=== PATIENT | male | born 1995 | race Caucasian/White ===

== ENCOUNTER 2022-10-27 11:43 | Inpatient (IN) | payer OTHER ==
[~2022-10-27] VITALS: Ht 182.9 cm; Wt 106.1 kg
[2022-10-27 12:47] LABS: HEMATOCRIT 47.9 % (42.0-52.0); HEMOGLOBIN 16.4 g/dl (13.5-17.5); MEAN CORPUSCULAR HEMOGLOBIN 31.7 pg (27.0-33.0); MEAN CORPUSCULAR HGB CONC 34.2 g/dl (32.0-36.5); MEAN CORPUSCULAR VOLUME 92.6 fl (80.0-96.0); PLATELET COUNT, AUTOMATED 282 10^3/uL (150-450); RED BLOOD COUNT 5.17 10^6/uL (4.30-6.10); WHITE BLOOD COUNT 8.8 10^3/uL (4.0-10.0)
[2022-10-27 13:07] LABS: METHADONE URINE NEGATIVE (NEGATIVE); OPIATES URINE NEGATIVE (NEGATIVE); PHENCYCLIDINE URINE NEGATIVE (NEGATIVE)
[2022-10-27 13:08] LABS: AMPHETAMINES LEVEL URINE NEGATIVE (NEGATIVE); BARBITURATES URINE NEGATIVE (NEGATIVE); BENZODIAZEPINES URINE NEGATIVE (NEGATIVE); CANNABINOIDS URINE NEGATIVE (NEGATIVE)
[2022-10-27 13:09] LABS: COCAINE METABOLITE URINE POSITIVE (NEGATIVE)
[2022-10-27 13:15] LABS: RSV AMPLIFICATION NEGATIVE (NEGATIVE)
[2022-10-27 13:22] LABS: ETHYL ALCOHOL (ETHANOL) 0.015 % (0.000-0.010)
[2022-10-27 13:23] LABS: ACETAMINOPHEN LEVEL < 2.0 UG/ML (10.0-20.0)
[2022-10-27 13:24] LABS: ALBUMIN 4.1 G/DL (3.2-5.2); ALKALINE PHOSPHATASE 96 U/L (46-116); ALT/SGPT 33 U/L (7.0-40); AST/SGOT 25 U/L (<34); BILIRUBIN,DIRECT < 0.1 MG/DL (<0.4); BILIRUBIN,TOTAL 0.3 MG/DL (0.3-1.2); BLOOD UREA NITROGEN 11 MG/DL (9-23); CALCIUM LEVEL 9.2 MG/DL (8.5-10.1); CARBON DIOXIDE LEVEL 23 MMOL/L (20-31); CHLORIDE LEVEL 101 MMOL/L (98-107); CREATININE FOR GFR 0.72 MG/DL (0.70-1.30); GLOMERULAR FILTRATION RATE > 60.0 (>60); GLUCOSE, FASTING 83 MG/DL (60-100); POTASSIUM SERUM 4.1 MMOL/L (3.5-5.1); SALICYLATE LEVEL < 3.0 MG/DL (<30); SODIUM LEVEL 139 MMOL/L (136-145); TOTAL PROTEIN 7.3 G/DL (5.7-8.2)
[2022-10-27 13:26] LABS: THYROID STIMULATING HORMONE 0.579 uIU/ML (0.55-4.78)
[2022-10-27] MEDS ORDERED: NICOTINE 21MG/24HR 1 EA TRANSDERMAL TD SCH (14:35)
[2022-10-27] MEDS ORDERED: HOME MED LIST COMPLETE! XX SCH (16:05)
[2022-10-27] MEDS ORDERED: MOM 30ML SUSPENSION UDC PO PRN (18:10)
[2022-10-27] MEDS ORDERED: LORazepam 1 MG TAB PO PRN (18:10)
[2022-10-27] MEDS ORDERED: MAALOX 30 ML SUSP *UDC PO PRN (18:10)
[2022-10-27] MEDS ORDERED: LORazepam 2 MG TAB PO PRN (19:05)
[2022-10-27 21:03] VITALS: BP 132/86
[2022-10-27] MEDS: traZODone 50 MG TAB PO PRN (21:30)
[2022-10-27] MEDS: THIAMINE 100 MG TAB PO SCH (21:30)
[2022-10-28 06:25] VITALS: BP 131/77
[2022-10-28 06:34] VITALS: BP 120/78
[2022-10-28] MEDS: MULTIVITAMINS/MINERALS THERAP 1 TAB PO SCH (08:35)
[2022-10-28] MEDS: THIAMINE 100 MG TAB PO SCH ×2 (08:36→21:09)
[2022-10-28] MEDS: FOLIC ACID 1MG TAB PO SCH (08:36)
[2022-10-28] MEDS: NICOTINE 21MG/24HR 1 EA TRANSDERMAL TD SCH (08:36)
[2022-10-28] MEDS: busPIRone 5 MG TAB PO SCH ×2 (11:26→21:09)
[2022-10-28 14:30] VITALS: BP 129/62
[2022-10-28 16:22] VITALS: BP 129/63
[2022-10-28] MEDS ORDERED: SERTRALINE HCL 25 MG TABLET PO ONE (21:00)
[2022-10-28 22:00] VITALS: BP 113/78
[2022-10-28] MEDS: traZODone 50 MG TAB PO PRN (22:26)
[2022-10-29 06:37] VITALS: BP 120/64
[2022-10-29 08:00] VITALS: BP 120/64
[2022-10-29] MEDS: FOLIC ACID 1MG TAB PO SCH (08:12)
[2022-10-29] MEDS: busPIRone 5 MG TAB PO SCH ×2 (08:12→21:00)
[2022-10-29] MEDS: NICOTINE 21MG/24HR 1 EA TRANSDERMAL TD SCH (08:12)
[2022-10-29] MEDS: MULTIVITAMINS/MINERALS THERAP 1 TAB PO SCH (08:12)
[2022-10-29] MEDS: THIAMINE 100 MG TAB PO SCH ×2 (08:12→21:00)
[2022-10-29 16:41] VITALS: BP 139/89
[2022-10-29 16:42] VITALS: BP 139/89
[2022-10-29 19:33] VITALS: BP 139/89
[2022-10-29 20:55] VITALS: BP 120/64
[2022-10-29] MEDS: SERTRALINE HCL 50 MG TAB PO SCH (21:00)
[2022-10-29] MEDS: traZODone 50 MG TAB PO PRN (21:00)
[2022-10-30 06:16] VITALS: BP 129/62
[2022-10-30 06:18] VITALS: BP 129/62
[2022-10-30] MEDS: MULTIVITAMINS/MINERALS THERAP 1 TAB PO SCH (08:14)
[2022-10-30] MEDS: busPIRone 5 MG TAB PO SCH ×2 (08:15→21:21)
[2022-10-30] MEDS: FOLIC ACID 1MG TAB PO SCH (08:15)
[2022-10-30] MEDS: THIAMINE 100 MG TAB PO SCH (08:15)
[2022-10-30] MEDS: NICOTINE 21MG/24HR 1 EA TRANSDERMAL TD SCH (08:15)
[2022-10-30 14:05] VITALS: BP 140/85
[2022-10-30 16:42] VITALS: BP 140/85
[2022-10-30] MEDS: traZODone 50 MG TAB PO PRN (21:21)
[2022-10-30] MEDS: SERTRALINE HCL 50 MG TAB PO SCH (21:21)
[2022-10-31 06:20] VITALS: BP 126/57
[2022-10-31] MEDS: busPIRone 5 MG TAB PO SCH ×2 (08:40→21:26)
[2022-10-31] MEDS: NICOTINE 21MG/24HR 1 EA TRANSDERMAL TD SCH (08:40)
[2022-10-31 16:24] VITALS: BP 135/84
[2022-10-31] MEDS: SERTRALINE HCL 50 MG TAB PO SCH (21:26)
[2022-10-31] MEDS: traZODone 100 MG TAB PO PRN (23:48)
[2022-11-01 06:15] VITALS: BP 119/59
[2022-11-01] MEDS: busPIRone 5 MG TAB PO SCH ×2 (08:07→20:25)
[2022-11-01] MEDS: NICOTINE 21MG/24HR 1 EA TRANSDERMAL TD SCH (08:07)
[2022-11-01 16:44] VITALS: BP 131/68
[2022-11-01] MEDS: SERTRALINE HCL 50 MG TAB PO SCH (20:25)
[2022-11-01] MEDS: traZODone 100 MG TAB PO PRN (22:02)
[2022-11-02 06:07] VITALS: BP 126/60
[2022-11-02] MEDS: NICOTINE 21MG/24HR 1 EA TRANSDERMAL TD SCH (08:16)
[2022-11-02] MEDS: hydrOXYzine 50 MG TAB PO PRN (08:17)
[2022-11-02] MEDS: busPIRone 5 MG TAB PO SCH (08:17)
[2022-11-02] MEDS ORDERED: busPIRone 10 MG TAB PO SCH (09:00)
[2022-11-02] MEDS ORDERED: busPIRone 5 MG TAB PO ONE (10:00)
[2022-11-02] MEDS: SERTRALINE 100 MG TAB PO SCH (10:44)
[2022-11-02] MEDS: ACETAMINOPHEN TAB 650MG DOSE (2X325MG) PO PRN (15:07)
[2022-11-02 18:18] VITALS: BP 123/78
[2022-11-02] MEDS: POLYVINYL ALCOHOL OPHTH SOLN 15ML (LIQUITEARS) OU PRN (20:30)
[2022-11-02] MEDS: busPIRone 10 MG TAB PO SCH (20:30)
[2022-11-02] MEDS: traZODone 100 MG TAB PO PRN (22:35)
[2022-11-03 06:03] VITALS: BP 109/60
[2022-11-03] MEDS: POLYVINYL ALCOHOL OPHTH SOLN 15ML (LIQUITEARS) OU PRN ×2 (08:28→16:11)
[2022-11-03] MEDS: SERTRALINE 100 MG TAB PO SCH (08:28)
[2022-11-03] MEDS: busPIRone 10 MG TAB PO SCH ×2 (08:28→20:12)
[2022-11-03] MEDS: NICOTINE 21MG/24HR 1 EA TRANSDERMAL TD SCH (08:29)
[2022-11-03] MEDS: ACETAMINOPHEN TAB 650MG DOSE (2X325MG) PO PRN (12:41)
[2022-11-03] MEDS: hydrOXYzine 50 MG TAB PO PRN (16:18)
[2022-11-03 19:05] VITALS: BP 166/90
[2022-11-03] MEDS: traZODone 100 MG TAB PO PRN (21:45)
[2022-11-04 06:13] VITALS: BP 125/69
[2022-11-04] MEDS: busPIRone 10 MG TAB PO SCH ×2 (08:24→20:47)
[2022-11-04] MEDS: SERTRALINE 100 MG TAB PO SCH (08:24)
[2022-11-04] MEDS: NICOTINE 21MG/24HR 1 EA TRANSDERMAL TD SCH (08:24)
[2022-11-04] MEDS: POLYVINYL ALCOHOL OPHTH SOLN 15ML (LIQUITEARS) OU PRN ×3 (10:38→21:21)
[2022-11-04] MEDS: hydrOXYzine 50 MG TAB PO PRN ×2 (11:31→19:01)
[2022-11-04 18:36] VITALS: BP 155/86
[2022-11-04] MEDS: traZODone 100 MG TAB PO PRN (23:32)
[2022-11-04] MEDS: PRAZOSIN 1 MG CAP PO SCH (23:32)
[2022-11-05 06:35] VITALS: BP 154/70
[2022-11-05] MEDS: busPIRone 10 MG TAB PO SCH ×2 (08:03→19:49)
[2022-11-05] MEDS: SERTRALINE 100 MG TAB PO SCH (08:03)
[2022-11-05] MEDS: NICOTINE 21MG/24HR 1 EA TRANSDERMAL TD SCH (08:03)
[2022-11-05] MEDS: POLYVINYL ALCOHOL OPHTH SOLN 15ML (LIQUITEARS) OU PRN ×3 (08:03→19:49)
[2022-11-05] MEDS: hydrOXYzine 50 MG TAB PO PRN ×2 (09:57→19:49)
[2022-11-05 19:34] VITALS: BP 137/89
[2022-11-05] MEDS: traZODone 100 MG TAB PO PRN (22:27)
[2022-11-05] MEDS: PRAZOSIN 1 MG CAP PO SCH (22:27)
[2022-11-06 06:27] VITALS: BP 122/63
[2022-11-06] MEDS: SERTRALINE 100 MG TAB PO SCH (07:55)
[2022-11-06] MEDS: POLYVINYL ALCOHOL OPHTH SOLN 15ML (LIQUITEARS) OU PRN ×2 (07:55→16:51)
[2022-11-06] MEDS: busPIRone 10 MG TAB PO SCH ×2 (07:56→20:20)
[2022-11-06] MEDS: NICOTINE 21MG/24HR 1 EA TRANSDERMAL TD SCH (07:57)
[2022-11-06] MEDS: hydrOXYzine 50 MG TAB PO PRN ×2 (10:29→16:51)
[2022-11-06 17:28] VITALS: BP 160/86
[2022-11-07] MEDS: PRAZOSIN 1 MG CAP PO SCH ×2 (00:57→20:37)
[2022-11-07] MEDS: hydrOXYzine 50 MG TAB PO PRN ×3 (00:58→19:44)
[2022-11-07] MEDS: traZODone 100 MG TAB PO PRN ×2 (01:54→23:02)
[2022-11-07 06:30] VITALS: BP 102/68
[2022-11-07] MEDS: SERTRALINE 100 MG TAB PO SCH (08:01)
[2022-11-07] MEDS: busPIRone 10 MG TAB PO SCH ×2 (08:02→20:37)
[2022-11-07] MEDS: NICOTINE 21MG/24HR 1 EA TRANSDERMAL TD SCH (08:02)
[2022-11-07] MEDS: POLYVINYL ALCOHOL OPHTH SOLN 15ML (LIQUITEARS) OU PRN ×2 (09:20→14:25)
[2022-11-07 17:45] VITALS: BP 135/76
[2022-11-08 06:17] VITALS: BP 111/58
[2022-11-08] MEDS: SERTRALINE 100 MG TAB PO SCH (08:07)
[2022-11-08] MEDS: NICOTINE 21MG/24HR 1 EA TRANSDERMAL TD SCH (08:08)
[2022-11-08] MEDS: busPIRone 10 MG TAB PO SCH ×2 (08:08→21:31)
[2022-11-08] MEDS: POLYVINYL ALCOHOL OPHTH SOLN 15ML (LIQUITEARS) OU PRN ×3 (08:08→19:57)
[2022-11-08] MEDS: hydrOXYzine 50 MG TAB PO PRN ×2 (11:05→19:56)
[2022-11-08 17:52] VITALS: BP 131/65
[2022-11-08] MEDS: PRAZOSIN 1 MG CAP PO SCH (21:32)
[2022-11-08] MEDS: traZODone 100 MG TAB PO PRN (22:05)
[2022-11-09 06:40] VITALS: BP 122/66
[2022-11-09] MEDS: busPIRone 10 MG TAB PO SCH ×2 (08:11→20:37)
[2022-11-09] MEDS: NICOTINE 21MG/24HR 1 EA TRANSDERMAL TD SCH (08:11)
[2022-11-09] MEDS: SERTRALINE 100 MG TAB PO SCH (08:11)
[2022-11-09] MEDS: hydrOXYzine 50 MG TAB PO PRN ×3 (08:11→21:01)
[2022-11-09] MEDS: POLYVINYL ALCOHOL OPHTH SOLN 15ML (LIQUITEARS) OU PRN ×2 (11:18→20:37)
[2022-11-09 17:44] VITALS: BP 131/78
[2022-11-09] MEDS: PRAZOSIN 1 MG CAP PO SCH (20:37)
[2022-11-09] MEDS: traZODone 100 MG TAB PO PRN (22:41)
[2022-11-10] MEDS: hydrOXYzine 50 MG TAB PO PRN ×3 (06:36→20:50)
[2022-11-10 06:38] VITALS: BP 127/70
[2022-11-10] MEDS: busPIRone 10 MG TAB PO SCH (07:36)
[2022-11-10] MEDS: NICOTINE 21MG/24HR 1 EA TRANSDERMAL TD SCH (07:36)
[2022-11-10] MEDS: POLYVINYL ALCOHOL OPHTH SOLN 15ML (LIQUITEARS) OU PRN ×2 (07:36→13:41)
[2022-11-10] MEDS: SERTRALINE 100 MG TAB PO SCH (07:37)
[2022-11-10] MEDS: ACETAMINOPHEN TAB 650MG DOSE (2X325MG) PO PRN ×2 (07:58→15:24)
[2022-11-10] MEDS ORDERED: SERTRALINE HCL 50 MG TAB PO ONE (10:40)
[2022-11-10 16:57] VITALS: BP 140/75
[2022-11-10] MEDS: PRAZOSIN 1 MG CAP PO SCH (20:50)
[2022-11-10] MEDS: busPIRone 5 MG TAB PO SCH (20:50)
[2022-11-10] MEDS: traZODone 100 MG TAB PO PRN (23:12)
[2022-11-11 06:46] VITALS: BP 116/59
[2022-11-11] MEDS: busPIRone 5 MG TAB PO SCH ×2 (07:30→20:21)
[2022-11-11] MEDS: SERTRALINE HCL 50 MG TAB PO SCH (07:31)
[2022-11-11] MEDS: hydrOXYzine 50 MG TAB PO PRN ×3 (07:31→21:32)
[2022-11-11] MEDS: NICOTINE 21MG/24HR 1 EA TRANSDERMAL TD SCH (07:32)
[2022-11-11] MEDS: ACETAMINOPHEN TAB 650MG DOSE (2X325MG) PO PRN (07:33)
[2022-11-11] MEDS: POLYVINYL ALCOHOL OPHTH SOLN 15ML (LIQUITEARS) OU PRN ×3 (08:43→21:32)
[2022-11-11] MEDS ORDERED: SUMAtriptan SUCCINATE 25 MG TAB PO ONE (11:35)
[2022-11-11] MEDS: FLUTICASONE HFA 110MCG 12GM INHALER (FLOVENT) INH SCH ×2 (11:55→20:20)
[2022-11-11 16:13] VITALS: BP 138/84
[2022-11-11] MEDS: LORATADINE 10 MG TAB PO SCH (20:21)
[2022-11-11] MEDS: PRAZOSIN 1 MG CAP PO SCH (20:21)
[2022-11-11] MEDS: traZODone 100 MG TAB PO PRN (22:19)
[2022-11-12] MEDS: hydrOXYzine 50 MG TAB PO PRN ×3 (06:27→20:39)
[2022-11-12 06:29] VITALS: BP 130/72
[2022-11-12] MEDS: busPIRone 5 MG TAB PO SCH ×2 (08:07→20:38)
[2022-11-12] MEDS: SERTRALINE HCL 50 MG TAB PO SCH (08:07)
[2022-11-12] MEDS: FLUTICASONE HFA 110MCG 12GM INHALER (FLOVENT) INH SCH (08:08)
[2022-11-12] MEDS: NICOTINE 21MG/24HR 1 EA TRANSDERMAL TD SCH (08:08)
[2022-11-12] MEDS: POLYVINYL ALCOHOL OPHTH SOLN 15ML (LIQUITEARS) OU PRN ×2 (08:59→20:39)
[2022-11-12] MEDS: ACETAMINOPHEN TAB 650MG DOSE (2X325MG) PO PRN (11:12)
[2022-11-12] MEDS: FLUTICASONE PROP 0.05% NASAL SPRAY 16 GM (FLONASE) NARES SCH (15:31)
[2022-11-12 18:19] VITALS: BP 141/70
[2022-11-12] MEDS: PRAZOSIN 1 MG CAP PO SCH (20:39)
[2022-11-12] MEDS: LORATADINE 10 MG TAB PO SCH (20:39)
[2022-11-12] MEDS: traZODone 100 MG TAB PO PRN (22:19)
[2022-11-13 05:59] VITALS: BP 131/79
[2022-11-13] MEDS: POLYVINYL ALCOHOL OPHTH SOLN 15ML (LIQUITEARS) OU PRN ×2 (06:23→15:55)
[2022-11-13] MEDS: ACETAMINOPHEN TAB 650MG DOSE (2X325MG) PO PRN (06:24)
[2022-11-13] MEDS: hydrOXYzine 50 MG TAB PO PRN ×3 (06:24→20:53)
[2022-11-13] MEDS: FLUTICASONE PROP 0.05% NASAL SPRAY 16 GM (FLONASE) NARES SCH (08:23)
[2022-11-13] MEDS: busPIRone 5 MG TAB PO SCH ×2 (08:24→20:04)
[2022-11-13] MEDS: SERTRALINE HCL 50 MG TAB PO SCH (08:24)
[2022-11-13] MEDS: NICOTINE 21MG/24HR 1 EA TRANSDERMAL TD SCH (08:24)
[2022-11-13] MEDS: SUMAtriptan SUCCINATE 25 MG TAB PO PRN (11:17)
[2022-11-13 16:31] VITALS: BP 138/85
[2022-11-13] MEDS: LORATADINE 10 MG TAB PO SCH (20:04)
[2022-11-13] MEDS: PRAZOSIN 1 MG CAP PO SCH (20:04)
[2022-11-14] MEDS: traZODone 100 MG TAB PO PRN ×2 (00:16→20:57)
[2022-11-14 06:28] VITALS: BP 108/56
[2022-11-14] MEDS: NICOTINE 21MG/24HR 1 EA TRANSDERMAL TD SCH (08:21)
[2022-11-14] MEDS: busPIRone 5 MG TAB PO SCH ×2 (08:21→20:56)
[2022-11-14] MEDS: SERTRALINE HCL 50 MG TAB PO SCH (08:21)
[2022-11-14] MEDS: FLUTICASONE PROP 0.05% NASAL SPRAY 16 GM (FLONASE) NARES SCH (08:21)
[2022-11-14] MEDS: hydrOXYzine 50 MG TAB PO PRN ×2 (11:59→18:28)
[2022-11-14] MEDS: POLYVINYL ALCOHOL OPHTH SOLN 15ML (LIQUITEARS) OU PRN ×2 (11:59→18:28)
[2022-11-14 16:18] VITALS: BP 138/74
[2022-11-14] MEDS: PRAZOSIN 1 MG CAP PO SCH (20:55)
[2022-11-14] MEDS: LORATADINE 10 MG TAB PO SCH (20:56)
[2022-11-15] MEDS: hydrOXYzine 50 MG TAB PO PRN ×3 (05:51→19:38)
[2022-11-15 06:48] VITALS: BP 112/79
[2022-11-15] MEDS: POLYVINYL ALCOHOL OPHTH SOLN 15ML (LIQUITEARS) OU PRN ×3 (06:56→19:38)
[2022-11-15] MEDS: busPIRone 5 MG TAB PO SCH ×2 (07:27→20:29)
[2022-11-15] MEDS: FLUTICASONE PROP 0.05% NASAL SPRAY 16 GM (FLONASE) NARES SCH (07:27)
[2022-11-15] MEDS: SUMAtriptan SUCCINATE 25 MG TAB PO PRN (07:27)
[2022-11-15] MEDS: NICOTINE 21MG/24HR 1 EA TRANSDERMAL TD SCH (07:28)
[2022-11-15] MEDS: SERTRALINE HCL 50 MG TAB PO SCH (07:29)
[2022-11-15 16:30] VITALS: BP 122/79
[2022-11-15] MEDS: PRAZOSIN 1 MG CAP PO SCH (20:29)
[2022-11-15] MEDS: LORATADINE 10 MG TAB PO SCH (20:29)
[2022-11-15] MEDS: traZODone 100 MG TAB PO PRN (22:28)
[2022-11-16 06:00] VITALS: BP 115/67
[2022-11-16] MEDS: SERTRALINE HCL 50 MG TAB PO SCH (08:02)
[2022-11-16] MEDS: busPIRone 5 MG TAB PO SCH ×2 (08:02→21:03)
[2022-11-16] MEDS: POLYVINYL ALCOHOL OPHTH SOLN 15ML (LIQUITEARS) OU PRN ×2 (08:03→15:52)
[2022-11-16] MEDS: FLUTICASONE PROP 0.05% NASAL SPRAY 16 GM (FLONASE) NARES SCH (08:03)
[2022-11-16] MEDS: ACETAMINOPHEN TAB 650MG DOSE (2X325MG) PO PRN (08:04)
[2022-11-16] MEDS: NICOTINE 21MG/24HR 1 EA TRANSDERMAL TD SCH (08:04)
[2022-11-16] MEDS: hydrOXYzine 50 MG TAB PO PRN ×2 (08:04→19:40)
[2022-11-16 19:26] VITALS: BP 152/83
[2022-11-16] MEDS: LORATADINE 10 MG TAB PO SCH (21:03)
[2022-11-16] MEDS: PRAZOSIN 1 MG CAP PO SCH (21:04)
[2022-11-16] MEDS: traZODone 100 MG TAB PO PRN (22:12)
[2022-11-17 06:03] VITALS: BP 117/64
[2022-11-17] MEDS: SERTRALINE HCL 50 MG TAB PO SCH (08:38)
[2022-11-17] MEDS: FLUTICASONE PROP 0.05% NASAL SPRAY 16 GM (FLONASE) NARES SCH (08:38)
[2022-11-17] MEDS: POLYVINYL ALCOHOL OPHTH SOLN 15ML (LIQUITEARS) OU PRN ×2 (08:38→16:23)
[2022-11-17] MEDS: hydrOXYzine 50 MG TAB PO PRN ×2 (08:38→17:12)
[2022-11-17] MEDS: busPIRone 5 MG TAB PO SCH ×2 (08:38→21:08)
[2022-11-17] MEDS: NICOTINE 21MG/24HR 1 EA TRANSDERMAL TD SCH (08:39)
[2022-11-17 18:41] VITALS: BP 140/84
[2022-11-17] MEDS: LORATADINE 10 MG TAB PO SCH (21:08)
[2022-11-17] MEDS: traZODone 100 MG TAB PO PRN (21:08)
[2022-11-17] MEDS: PRAZOSIN 1 MG CAP PO SCH (21:09)
[2022-11-18 06:46] VITALS: BP 106/80
[2022-11-18] MEDS: hydrOXYzine 50 MG TAB PO PRN ×3 (07:04→20:00)
[2022-11-18] MEDS: POLYVINYL ALCOHOL OPHTH SOLN 15ML (LIQUITEARS) OU PRN (08:43)
[2022-11-18] MEDS: FLUTICASONE PROP 0.05% NASAL SPRAY 16 GM (FLONASE) NARES SCH (08:43)
[2022-11-18] MEDS: SERTRALINE HCL 50 MG TAB PO SCH (08:44)
[2022-11-18] MEDS: busPIRone 5 MG TAB PO SCH ×2 (08:44→19:59)
[2022-11-18] MEDS: NICOTINE 21MG/24HR 1 EA TRANSDERMAL TD SCH (08:45)
[2022-11-18 19:10] VITALS: BP 134/83
[2022-11-18] MEDS: LORATADINE 10 MG TAB PO SCH (19:59)
[2022-11-18] MEDS: PRAZOSIN 1 MG CAP PO SCH (19:59)
[2022-11-18] MEDS: traZODone 100 MG TAB PO PRN (22:46)
[2022-11-19 06:47] VITALS: BP 121/61
[2022-11-19] MEDS: busPIRone 5 MG TAB PO SCH ×2 (08:55→20:17)
[2022-11-19] MEDS: NICOTINE 21MG/24HR 1 EA TRANSDERMAL TD SCH (08:55)
[2022-11-19] MEDS: SERTRALINE HCL 50 MG TAB PO SCH (08:55)
[2022-11-19] MEDS: FLUTICASONE PROP 0.05% NASAL SPRAY 16 GM (FLONASE) NARES SCH (08:56)
[2022-11-19] MEDS: POLYVINYL ALCOHOL OPHTH SOLN 15ML (LIQUITEARS) OU PRN ×2 (08:56→20:17)
[2022-11-19] MEDS: hydrOXYzine 50 MG TAB PO PRN ×2 (11:25→20:17)
[2022-11-19] MEDS: SUMAtriptan SUCCINATE 25 MG TAB PO PRN (11:25)
[2022-11-19 19:11] VITALS: BP 156/82
[2022-11-19] MEDS: PRAZOSIN 1 MG CAP PO SCH (20:17)
[2022-11-19] MEDS: LORATADINE 10 MG TAB PO SCH (20:17)
[2022-11-19] MEDS: traZODone 100 MG TAB PO PRN (22:46)
[2022-11-20] MEDS: hydrOXYzine 50 MG TAB PO PRN ×3 (06:10→20:26)
[2022-11-20 06:57] VITALS: BP 123/78
[2022-11-20] MEDS: NICOTINE 21MG/24HR 1 EA TRANSDERMAL TD SCH (08:26)
[2022-11-20] MEDS: busPIRone 5 MG TAB PO SCH ×2 (08:26→20:26)
[2022-11-20] MEDS: SERTRALINE HCL 50 MG TAB PO SCH (08:26)
[2022-11-20] MEDS: FLUTICASONE PROP 0.05% NASAL SPRAY 16 GM (FLONASE) NARES SCH ×2 (08:27→20:26)
[2022-11-20] MEDS: POLYVINYL ALCOHOL OPHTH SOLN 15ML (LIQUITEARS) OU PRN ×2 (13:50→20:26)
[2022-11-20 17:30] VITALS: BP 143/86
[2022-11-20] MEDS: LORATADINE 10 MG TAB PO SCH (20:26)
[2022-11-20] MEDS: PRAZOSIN 1 MG CAP PO SCH (20:26)
[2022-11-21] MEDS: traZODone 100 MG TAB PO PRN (00:10)
[2022-11-21 06:35] VITALS: BP 107/69
[2022-11-21] MEDS: FLUTICASONE PROP 0.05% NASAL SPRAY 16 GM (FLONASE) NARES SCH ×2 (08:05→20:35)
[2022-11-21] MEDS: NICOTINE 21MG/24HR 1 EA TRANSDERMAL TD SCH (08:07)
[2022-11-21] MEDS: hydrOXYzine 50 MG TAB PO PRN ×3 (08:07→21:45)
[2022-11-21] MEDS: busPIRone 5 MG TAB PO SCH ×2 (08:07→20:36)
[2022-11-21] MEDS: SERTRALINE HCL 50 MG TAB PO SCH (08:07)
[2022-11-21] MEDS: POLYVINYL ALCOHOL OPHTH SOLN 15ML (LIQUITEARS) OU PRN ×2 (14:53→21:45)
[2022-11-21 17:28] VITALS: BP 152/95
[2022-11-21] MEDS: PRAZOSIN 1 MG CAP PO SCH (20:36)
[2022-11-21] MEDS: LORATADINE 10 MG TAB PO SCH (20:36)
[2022-11-22] MEDS: traZODone 100 MG TAB PO PRN ×2 (00:17→22:56)
[2022-11-22 06:43] VITALS: BP 113/56
[2022-11-22] MEDS: SERTRALINE HCL 50 MG TAB PO SCH (09:48)
[2022-11-22] MEDS: POLYVINYL ALCOHOL OPHTH SOLN 15ML (LIQUITEARS) OU PRN ×2 (09:49→16:32)
[2022-11-22] MEDS: FLUTICASONE PROP 0.05% NASAL SPRAY 16 GM (FLONASE) NARES SCH ×2 (09:49→22:07)
[2022-11-22] MEDS: NICOTINE 21MG/24HR 1 EA TRANSDERMAL TD SCH (09:49)
[2022-11-22] MEDS: busPIRone 5 MG TAB PO SCH ×2 (09:49→22:06)
[2022-11-22] MEDS: hydrOXYzine 50 MG TAB PO PRN ×2 (14:31→22:11)
[2022-11-22 20:34] VITALS: BP 132/60
[2022-11-22] MEDS ORDERED: TRAZ-257 PO (20:51)
[2022-11-22] MEDS ORDERED: BUSP5TA PO (20:51)
[2022-11-22] MEDS ORDERED: PRAZ5CAP PO ×2 (20:51)
[2022-11-22] MEDS ORDERED: POLYOPD OU (20:51)
[2022-11-22] MEDS ORDERED: HYDR50TA70 PO (20:51)
[2022-11-22] MEDS ORDERED: CLAR10TA7 PO (20:51)
[2022-11-22] MEDS ORDERED: FLUTISP NARES (20:51)
[2022-11-22] MEDS ORDERED: SERT50TA29 PO (20:51)
[2022-11-22] MEDS ORDERED: SUMA25TA3 PO (20:51)
[2022-11-22] MEDS ORDERED: NICO21PAT TD (20:51)
[2022-11-22] MEDS: PRAZOSIN 1 MG CAP PO SCH (22:06)
[2022-11-22] MEDS: LORATADINE 10 MG TAB PO SCH (22:07)
[2022-11-23 06:01] VITALS: BP 140/64
[2022-11-23] MEDS: NICOTINE 21MG/24HR 1 EA TRANSDERMAL TD SCH (08:25)
[2022-11-23] MEDS: POLYVINYL ALCOHOL OPHTH SOLN 15ML (LIQUITEARS) OU PRN ×3 (08:25→21:43)
[2022-11-23] MEDS: FLUTICASONE PROP 0.05% NASAL SPRAY 16 GM (FLONASE) NARES SCH ×2 (08:25→20:38)
[2022-11-23] MEDS: SERTRALINE HCL 50 MG TAB PO SCH (08:26)
[2022-11-23] MEDS: busPIRone 5 MG TAB PO SCH ×2 (08:26→20:36)
[2022-11-23] MEDS: hydrOXYzine 50 MG TAB PO PRN ×3 (08:26→21:43)
[2022-11-23 17:32] VITALS: BP 131/77
[2022-11-23] MEDS: LORATADINE 10 MG TAB PO SCH (20:36)
[2022-11-23] MEDS: PRAZOSIN 1 MG CAP PO SCH (20:37)
[2022-11-23] MEDS: traZODone 100 MG TAB PO PRN (22:57)
[2022-11-24] MEDS: NICOTINE 21MG/24HR 1 EA TRANSDERMAL TD SCH (09:00)
[2022-11-24] MEDS: FLUTICASONE PROP 0.05% NASAL SPRAY 16 GM (FLONASE) NARES SCH ×2 (09:08→20:34)
[2022-11-24] MEDS: POLYVINYL ALCOHOL OPHTH SOLN 15ML (LIQUITEARS) OU PRN (09:08)
[2022-11-24] MEDS: busPIRone 5 MG TAB PO SCH ×2 (09:08→20:34)
[2022-11-24] MEDS: SERTRALINE HCL 50 MG TAB PO SCH (09:08)
[2022-11-24] MEDS: hydrOXYzine 50 MG TAB PO PRN ×2 (09:09→15:52)
[2022-11-24 16:46] VITALS: BP 128/71
[2022-11-24] MEDS ORDERED: LORazepam 1 MG TAB PO ONE (18:20)
[2022-11-24 20:34] VITALS: BP 156/78
[2022-11-24] MEDS: LORATADINE 10 MG TAB PO SCH (20:34)
[2022-11-24] MEDS: PRAZOSIN 1 MG CAP PO SCH (20:34)
[2022-11-24] MEDS: traZODone 100 MG TAB PO PRN (21:16)
[2022-11-25] MEDS: busPIRone 5 MG TAB PO SCH (06:23)
[2022-11-25] MEDS: SERTRALINE HCL 50 MG TAB PO SCH (06:23)
[2022-11-25] MEDS: hydrOXYzine 50 MG TAB PO PRN (06:40)
== END 2022-11-25 07:16 | DRG 885 ==
LOC: M ED 11:43 → M ED INP 18:07 → M PSY 20:20
PROVIDERS: ADMIT Psychiatry & Neurology Psychiatry; ATTEND Psychiatry & Neurology Psychiatry
DX: F32.1 Major depressive disorder, single episode, moderate (principal); R45.851 Suicidal ideations; F10.10 Alcohol abuse, uncomplicated; F14.90 Cocaine use, unspecified, uncomplicated; Z79.899 Other long term (current) drug therapy; Z59.89 Other problems related to housing and economic circumstances; F17.200 Nicotine dependence, unspecified, uncomplicated

== ENCOUNTER 2023-03-21 11:47 | Emergency (ER) | payer OTHER ==
[~2023-03-21] VITALS: Ht 182.9 cm; Wt 113.3 kg
[~2023-03-21 11:47] MED LIST: ARTIDRO4 OU; BUSP5TA PO; CLAR10TA7 PO; FLUT50SP17 NARES; HYDR50TA70 PO; NICO21PAT TD; PRAZ5CAP PO; SERT50TA29 PO; SUMA25TA3 PO; TRAZ-257 PO
[2023-03-21 11:48] VITALS: BP 142/96
[2023-03-21] MEDS ORDERED: PRAZ1CAP PO ×2 (12:19→12:22)
[2023-03-21] MEDS ORDERED: NEUR300C PO (12:19)
[2023-03-21] MEDS ORDERED: PRAZ5CAP PO ×2 (12:20→12:23)
[2023-03-21] MEDS ORDERED: GABA-282 PO (12:22)
[2023-03-21] MEDS ORDERED: ZOLO100T PO (12:23)
[2023-03-21] MEDS ORDERED: PRAZ2CAP PO (12:24)
[2023-03-21] MEDS ORDERED: TRAZ1TAB14 PO (12:25)
[2023-03-21] MEDS ORDERED: PROP20TA PO (12:25)
[2023-03-21] MEDS ORDERED: TRIL1TAB PO (12:26)
[2023-03-21] MEDS ORDERED: SERO1TAB PO (12:27)
[2023-03-21] MEDS ORDERED: SERO1TAB3 PO (12:28)
== END 2023-03-21 12:51 | disposition home or self-care (01) ==
LOC: M ED 11:47
DX: Z76.0 Encounter for issue of repeat prescription (principal); F32.A Depression, unspecified; F17.200 Nicotine dependence, unspecified, uncomplicated; Z79.899 Other long term (current) drug therapy

== ENCOUNTER 2023-04-12 15:17 | Emergency (ER) | payer OTHER ==
[~2023-04-12] VITALS: Ht 182.9 cm; Wt 112.8 kg
[~2023-04-12 15:17] MED LIST changes: +GABA-282 PO; +NEUR300C PO; +PRAZ1CAP PO; +PRAZ2CAP PO; +PROP20TA PO; +SERO1TAB PO; +SERO1TAB3 PO; +TRAZ1TAB14 PO; +TRIL1TAB PO; +ZOLO100T PO
[2023-04-12] MEDS ORDERED: IBUP-1022 PO ×2 (18:35→18:47)
[2023-04-12] MEDS ORDERED: IBUPROFEN 600MG TAB PO ONE (18:35)
[2023-04-12 18:49] VITALS: BP 121/78; TEMP 97.7; O2SAT 97
== END 2023-04-12 20:26 | disposition home or self-care (01) ==
LOC: M ED 15:17
DX: S90.121A Contusion of right lesser toe(s) without damage to nail, initial encounter (principal); W22.8XXA Striking against or struck by other objects, initial encounter; Y92.009 Unspecified place in unspecified non-institutional (private) residence as the place of occurrence of the external cause; F17.200 Nicotine dependence, unspecified, uncomplicated; Z79.899 Other long term (current) drug therapy

== ENCOUNTER 2023-05-05 10:54 | Emergency (ER) | payer OTHER ==
[~2023-05-05] VITALS: Ht 182.9 cm; Wt 112.1 kg
[~2023-05-05 10:54] MED LIST changes: +IBUP-1022 PO
[2023-05-05] MEDS ORDERED: PRAZ2CAP40 PO (11:10)
[2023-05-05 12:12] LABS: BASO # 0.1 10^3/uL (0.0-0.2); BASO % 0.5 % (0.0-1.0); EOS # 0.1 10^3/uL (0.0-0.5); EOS % 0.5 % (0.0-3.0); HEMATOCRIT 41.2 % (42.0-52.0); LYMPH # 2.1 10^3/uL (1.5-5.0); LYMPH % 14.9 % (24.0-44.0); MEAN CORPUSCULAR HEMOGLOBIN 30.2 pg (27.0-33.0); MONO % 6.7 % (2.0-8.0); NEUTROPHILS # 10.9 10^3/uL (1.5-8.5); PLATELET COUNT, AUTOMATED 262 10^3/uL (150-450); RED BLOOD COUNT 4.63 10^6/uL (4.30-6.10); WHITE BLOOD COUNT 14.2 10^3/uL (4.0-10.0)
[2023-05-05 12:42] LABS: ALBUMIN 4.1 G/DL (3.2-5.2); ALKALINE PHOSPHATASE 85 U/L (46-116); ALT/SGPT 29 U/L (7.0-40); AST/SGOT 18 U/L (<34); BILIRUBIN,TOTAL 0.4 MG/DL (0.3-1.2); BLOOD UREA NITROGEN 12 MG/DL (9-23); CALCIUM LEVEL 10.2 MG/DL (8.5-10.1); CARBON DIOXIDE LEVEL 24 MMOL/L (20-31); CHLORIDE LEVEL 103 MMOL/L (98-107); CREATININE FOR GFR 0.76 MG/DL (0.70-1.30); GLOMERULAR FILTRATION RATE > 60.0 (>60); GLUCOSE, FASTING 94 MG/DL (60-100); POTASSIUM SERUM 4.3 MMOL/L (3.5-5.1); SODIUM LEVEL 137 MMOL/L (136-145); TOTAL PROTEIN 6.9 G/DL (5.7-8.2)
[2023-05-05 14:43] LABS: MAGNESIUM LEVEL 1.9 MG/DL (1.8-2.4)
[2023-05-05 14:47] LABS: THYROID STIMULATING HORMONE 0.589 uIU/ML (0.55-4.78)
[2023-05-05 14:48] LABS: FREE T4 1.11 NG/DL (0.89-1.76)
[2023-05-05 15:32] LABS: APPEARANCE, URINE CLEAR (CLEAR); BACTERIA, URINE AUTO NEGATIVE (NEGATIVE); BILIRUBIN, URINE AUTO NEGATIVE (NEGATIVE); BLOOD, URINE BLOOD NEGATIVE (NEGATIVE); COLOR, URINE STRAW (YELLOW); GLUCOSE, URINE (UA) AUTO NEGATIVE (NEGATIVE); KETONE, URINE AUTO NEGATIVE (NEGATIVE); LEUKOCYTE ESTERASE, URINE AUTO NEGATIVE (NEGATIVE); NITRITE, URINE AUTO NEGATIVE (NEGATIVE); PROTEIN, URINE AUTO NEGATIVE (NEGATIVE); RBC, URINE AUTO 0 /HPF (0-3); SPECIFIC GRAVITY URINE AUTO 1.004 (1.002-1.035); SQUAMOUS EPITHELIAL CELL UR AU 0 /HPF (0-6); UROBILINOGEN, URINE AUTO 0.2 mg/dL (0.0-2.0); WBC, URINE AUTO 0 /HPF (0-3)
[2023-05-05 16:02] LABS: AMPHETAMINES LEVEL URINE NEGATIVE (NEGATIVE); BARBITURATES URINE NEGATIVE (NEGATIVE); COCAINE METABOLITE URINE NEGATIVE (NEGATIVE); METHADONE URINE NEGATIVE (NEGATIVE); PHENCYCLIDINE URINE NEGATIVE (NEGATIVE)
[2023-05-05 16:03] LABS: BENZODIAZEPINES URINE NEGATIVE (NEGATIVE); CANNABINOIDS URINE NEGATIVE (NEGATIVE); OPIATES URINE NEGATIVE (NEGATIVE)
[2023-05-05 16:33] VITALS: BP 130/80; TEMP 98.6; O2SAT 96
== END 2023-05-05 16:46 | disposition home or self-care (01) ==
LOC: M ED 10:54
DX: R55 Syncope and collapse (principal); D72.819 Decreased white blood cell count, unspecified; R53.83 Other fatigue; F41.9 Anxiety disorder, unspecified; F31.9 Bipolar disorder, unspecified; F32.A Depression, unspecified

== ENCOUNTER 2023-05-24 06:32 | Emergency (ER) | payer OTHER ==
[~2023-05-24] VITALS: Ht 193 cm; Wt 107.1 kg
[~2023-05-24 06:32] MED LIST changes: +PRAZ2CAP40 PO
[2023-05-24 07:40] LABS: HEMATOCRIT 41.8 % (42.0-52.0); HEMOGLOBIN 14.2 g/dl (13.5-17.5); MEAN CORPUSCULAR HEMOGLOBIN 30.7 pg (27.0-33.0); MEAN CORPUSCULAR VOLUME 90.5 fl (80.0-96.0); PLATELET COUNT, AUTOMATED 285 10^3/uL (150-450); RED BLOOD COUNT 4.62 10^6/uL (4.30-6.10); WHITE BLOOD COUNT 5.8 10^3/uL (4.0-10.0)
[2023-05-24 08:02] LABS: ETHYL ALCOHOL (ETHANOL) 0.004 % (0.000-0.010)
[2023-05-24 08:04] LABS: ACETAMINOPHEN LEVEL < 2.0 UG/ML (10.0-20.0); ALBUMIN 4.2 G/DL (3.2-5.2); ALKALINE PHOSPHATASE 80 U/L (46-116); ALT/SGPT 31 U/L (7.0-40); AST/SGOT 24 U/L (<34); BILIRUBIN,DIRECT 0.1 MG/DL (<0.4); BILIRUBIN,TOTAL 0.6 MG/DL (0.3-1.2); BLOOD UREA NITROGEN 15 MG/DL (9-23); CALCIUM LEVEL 9.3 MG/DL (8.5-10.1); CARBON DIOXIDE LEVEL 23 MMOL/L (20-31); CHLORIDE LEVEL 106 MMOL/L (98-107); CREATININE FOR GFR 0.81 MG/DL (0.70-1.30); GLOMERULAR FILTRATION RATE > 60.0 (>60); GLUCOSE, FASTING 106 MG/DL (60-100); POTASSIUM SERUM 3.8 MMOL/L (3.5-5.1); SALICYLATE LEVEL < 3.0 MG/DL (<30); SODIUM LEVEL 140 MMOL/L (136-145)
[2023-05-24 08:06] LABS: THYROID STIMULATING HORMONE 1.884 uIU/ML (0.55-4.78)
[2023-05-24] MEDS ORDERED: MED REC IN PROGRESS XX SCH (08:25)
[2023-05-24] MEDS ORDERED: SERTRALINE 100 MG TAB PO SCH (09:00)
[2023-05-24] MEDS ORDERED: GABA-282 PO (14:42)
[2023-05-24] MEDS ORDERED: TRAZ1TAB14 PO (14:42)
[2023-05-24] MEDS ORDERED: OXCA300T14 PO (14:42)
[2023-05-24] MEDS ORDERED: PRAZ2CAP PO (14:42)
[2023-05-24] MEDS ORDERED: NALT50TA4 PO (14:42)
[2023-05-24] MEDS ORDERED: PROP20TA72 PO (14:42)
[2023-05-24] MEDS ORDERED: ZOLO100T PO (14:42)
[2023-05-24] MEDS ORDERED: HOME MED LIST COMPLETE! XX SCH (14:45)
[2023-05-24 14:48] LABS: AMPHETAMINES LEVEL URINE NEGATIVE (NEGATIVE); BARBITURATES URINE NEGATIVE (NEGATIVE); BENZODIAZEPINES URINE NEGATIVE (NEGATIVE); CANNABINOIDS URINE NEGATIVE (NEGATIVE); METHADONE URINE NEGATIVE (NEGATIVE); OPIATES URINE NEGATIVE (NEGATIVE); PHENCYCLIDINE URINE NEGATIVE (NEGATIVE)
[2023-05-24 14:49] LABS: COCAINE METABOLITE URINE POSITIVE (NEGATIVE)
[2023-05-24] MEDS: PROPRANOLOL 20 MG TAB PO SCH ×2 (16:00→22:00)
[2023-05-24] MEDS: GABAPENTIN 300 MG CAP PO SCH ×2 (18:07→21:00)
[2023-05-24] MEDS ORDERED: traZODone 50 MG TAB PO SCH (21:00)
[2023-05-24] MEDS ORDERED: OXcarbazepine 300 MG TAB PO SCH (21:00)
[2023-05-24] MEDS ORDERED: PRAZOSIN 1 MG CAP PO SCH (21:00)
[2023-05-24 22:00] VITALS: BP 139/102
[2023-05-24 23:03] VITALS: BP 140/79; TEMP 99; O2SAT 97
[2023-05-25] MEDS ORDERED: NALTREXONE 50 MG TAB PO SCH (09:00)
== END 2023-05-24 23:10 ==
LOC: M ED 06:32
DX: R45.851 Suicidal ideations (principal); F14.10 Cocaine abuse, uncomplicated; F19.10 Other psychoactive substance abuse, uncomplicated; M54.40 Lumbago with sciatica, unspecified side

== ENCOUNTER → 2023-07-12 | Outpatient (CLI) | payer OTHER ==
[~2023-07-12] MED LIST changes: +NALT50TA4 PO; +OXCA300T14 PO; +PROP20TA72 PO
== END ==
LOC: M LAB 14:49
PROVIDERS: ATTEND Physician Assistant Medical
DX: R19.7 Diarrhea, unspecified (principal)